=== PATIENT | male | born 1935 | race Caucasian/White ===

== ENCOUNTER 2016-08-21 02:13 | Emergency (ER) | payer OTHER ==
[~2016-08-21] VITALS: Ht 170.2 cm; Wt 68.3 kg
[~2016-08-21 02:13] MED LIST: 8 HOUR PAIN RE650 M1 PO; ACETAMINOPHEN325 M1 PO; ALBUTEROL SULFAT2 MG PO; ALLOPURINOL100 MG PO; AMLODIPINE BES2.5 MG PO; AMOX TR-K CLV1 EAC3 PO; AMOX TR-K CLV1 EAC4 PO; ANTIFUNGAL15 G1 TP; ATENOLOL50 M1 PO; ATHENOL325 MG PO; AUGMENTIN875 MG PO; BENADRYL50 MG PO; BISCOLAX10 MG RC; CALCITRIOL0.25 MC1 PO; CALCITRIOL0.25 MCG PO; CARAFATE1 GM PO; CEFDINIR300 MG PO; CIPRO500 MG PO; CLOTRIMAZOLE15 GM TP; Ceftin PO; DAILY VALUE1 EACH PO; DAILY VITAMIN1 EAC5 PO; DAILY VITE WIT1 EACH PO; DAILY VITE1 EAC1 PO; DIPHENHYDRAMINE50 M1 PO; DITROPAN5 MG PO; DOXYCYCLINE HY100 MG PO; DUONEB 2.5-0.5 M3 ML AEROSOL; DUONEB 2.5-0.5 M3 ML IH; DUONEB 2.5-0.5 M3 ML IPPB; Dulcolax PR; ENULOSE10 GM/151 PO; FEOSOL325 MG PO; FEROSUL325 MG PO; FERROUS SULFAT325 MG PO; INVANZ1 GM IV; IPRATR-ALBUTEROL3 ML IH; IRON325 M1 PO; IRON325 MG PO; KEPPRA500 MG PO; KETOCONAZOLE60 GM TP; LEVAQUIN250 MG PO; LEVAQUIN500 MG PO; LEVAQUIN750 MG PO; LEVETIRACETAM1000 MG PO; LEVETIRACETAM500 MG PO; LEVOFLOXACIN750 MG PO; LINEZOLID600 MG PO; LOPRESSOR25 MG PO; MINERAL OIL PO; MIRALAX 527 GM527 GM PO; MIRALAX17 GM PO; MIRALAX255 GM PO; MONTELUKAST SOD10 MG PO; Miralax, Glycolax PO; NEXIUM40 MG PO; NIZORAL 2% CREA15 GM TP; NORVASC2.5 MG PO; NORVASC5 MG PO; Nizoral 2% Cream TP; Norvasc PO; OMNICEF300 MG PO; PANTOPRAZOLE SO40 MG PO; PHENERGAN12.5 M1 PO; PLAVIX75 MG PO; POLYETHYLENE GL17 GM PO; PRAVACHOL40 MG PO; PRAVASTATIN SOD40 MG PO; PREDNISONE10 MG PO; PREDNISONE5 MG PO; PROMETHAZINE HC25 M1 PO; PROTONIX40 MG PO; PROVENTIL,VENTOL2 MG PO; PURELAX510 GM PO; Phenergan PO; Pravachol PO; Protonix PO; RANITIDINE HCL300 MG PO; ROCALTROL0.25 MCG PO; Rocaltrol PO; SENNA LAXATIVE8.6 MG PO; SENNA8.6 M1 PO; SENNA8.6 MG PO; SINGULAIR10 MG PO; STROVITE FORTE1 EACH PO; SUCRALFATE1 GM PO; Senokot,Sennagen PO; TAMIFLU6 MG/1 ML PO; THERAGRAN1 TABLET PO; TRICOR145 MG PO; TYLENOL REGULA325 MG PO; TYLENOL325 M1 PO; Tricor PO; Tylenol Regular Stre PO; VITAMIN D1000 INTUN PO; VITAMIN D1000 UNIT PO; VITAMIN D31000 UNI2 PO; VITAMIN D31000 UNIT PO; Vitamin D PO; ZANTAC150 MG PO; ZANTAC300 MG PO; ZITHROMAX Z-PA250 MG PO; ZITHROMAX250 MG PO; ZONISAMIDE100 MG PO; ZYLOPRIM100 MG PO; Zithromax PO; [UNRECOGNIZED DRUG - OTHER] PO
[2016-08-21 03:01] LABS: EOSINOPHIL (%) 2.6 % (0-5); EOSINOPHIL COUNT 0.4 K/uL (0-0.3); HEMATOCRIT 29.1 % (38.0-50.0); IMMATURE GRANULOCYTE (%) 0.2 % (0.0-0.7); IMMATURE GRANULOCYTE COUNT 0.3 K/uL; LYMPHOCYTE COUNT 1.7 K/uL (1.0-2.8); MCH 32.8 PG (29.0-34.0); MCHC 33.7 G/DL (30.0-36.0); MCV 97.3 FL (86-99); MEAN PLAT.VOLUME 9.8 uM^3 (9.0-12.4); MONOCYTE (%) 5.6 % (3-12); MONOCYTE COUNT 0.8 K/uL (0-0.8); NEUTROPHIL (%) 79.1 % (45-76); NEUTROPHIL COUNT 10.6 K/uL (1.8-6.4); PLATELET COUNT 279 K/uL (156-360); RBC DIS.WIDTH-CV 12.4 % (11.8-14.6); RBC DIS.WIDTH-SD 42.2 % (39-53); RED BLOOD COUNT 2.99 M/uL (4.00-5.50)
[2016-08-21 03:02] LABS: WHITE BLOOD COUNT 13.4 K/uL (4.1-10.2)
[2016-08-21 03:09] LABS: CHLORIDE 105 mEq/L (99-109); POTASSIUM 4.6 mEq/L (3.7-5.4); SODIUM 137 mEq/L (136-147)
[2016-08-21 03:11] LABS: GLUCOSE 94 mg/dL (70-99)
[2016-08-21 03:12] LABS: ANION GAP 10 MEQ/L (2-14)
[2016-08-21 03:15] LABS: GFR ESTIMATE (CALCULATED) 42 mL/min/
[2016-08-21 03:16] LABS: UREA NITROGEN (BUN) 28 mg/dL (9-23)
[2016-08-21 03:22] LABS: TROP-I INTERPRETATION NEGATIVE; TROPONIN-I < 0.01 ng/mL (0.0-0.30)
[2016-08-21] MEDS ORDERED: ZOFRAN ODT4 MG PO (03:58)
[2016-08-21] MEDS ORDERED: HYCODAN SYRUP480 ML PO (03:58)
[2016-08-21] MEDS ORDERED: DOXYCYCLINE HY100 MG PO (03:58)
[2016-08-21 04:33] VITALS: BP 142/78
== END 2016-08-21 04:34 | disposition home or self-care (01) ==
LOC: EME 02:13
PROVIDERS: Emergency Medicine
DX: J20.9 Acute bronchitis, unspecified (principal); I12.9 Hypertensive chronic kidney disease with stage 1 through stage 4 chronic kidney disease, or unspecified chronic kidney disease; N18.3 Chronic kidney disease, stage 3 (moderate); K21.9 Gastro-esophageal reflux disease without esophagitis; F73 Profound intellectual disabilities
CPT/HCPCS: 71010; 80048; 84484; 85025; 99281; 99284; J2405; J7030

== ENCOUNTER 2016-09-17 22:15 | Inpatient (IN) | payer OTHER ==
[~2016-09-17] VITALS: Ht 167.6 cm; Wt 74.9 kg
[~2016-09-17 22:15] MED LIST changes: +HYCODAN SYRUP480 ML PO; +ZOFRAN ODT4 MG PO
[2016-09-17 22:58] LABS: MCH 32.5 PG (29.0-34.0); MCHC 32.9 G/DL (30.0-36.0); MCV 98.9 FL (86-99); MEAN PLAT.VOLUME 10.2 uM^3 (9.0-12.4); PLATELET COUNT 225 K/uL (156-360); RBC DIS.WIDTH-CV 12.8 % (11.8-14.6); RBC DIS.WIDTH-SD 43.9 % (39-53); RED BLOOD COUNT 2.83 M/uL (4.00-5.50)
[2016-09-17 23:07] LABS: CHLORIDE 104 mEq/L (99-109); POTASSIUM 4.3 mEq/L (3.7-5.4); SODIUM 137 mEq/L (136-147)
[2016-09-17 23:09] LABS: GLUCOSE 115 mg/dL (70-99); INTER. NORMALIZED RATIO 1.1; PROTHROMBIN TIME 11.6 (9.2-11.2); PTT 25.7 (25-32)
[2016-09-17 23:11] LABS: ANION GAP 8 MEQ/L (2-14); TOTAL BILIRUBIN 0.1 mg/dL (0.0-1.0)
[2016-09-17 23:13] LABS: ALKALINE PHOSPHATASE 67 IU/L (3-129); GFR ESTIMATE (CALCULATED) 39 mL/min/
[2016-09-17 23:14] LABS: UREA NITROGEN (BUN) 37 mg/dL (9-23)
[2016-09-17 23:15] LABS: DIRECT BILIRUBIN 0.1 mg/dL (0.0-0.3)
[2016-09-18] VITALS (7 sets, daily range): BP systolic 28–160; BP diastolic 59–84
[2016-09-18 08:09] LABS: HEMATOCRIT 24.4 % (38.0-50.0); MCV 99.6 FL (86-99)
[2016-09-18] MEDS ORDERED: DAILY VITE WIT1 EACH PO (17:02)
[2016-09-18] MEDS ORDERED: GENERLAC10 GM/15 M PO (17:02)
[2016-09-18] MEDS ORDERED: DUONEB 2.5-0.5 M3 ML AEROSOL (17:18)
[2016-09-18] MEDS ORDERED: ACETAMINOPHEN325 M1 PO (17:20)
[2016-09-18 20:19] LABS: HEMATOCRIT 23.3 % (38.0-50.0); MCV 98.3 FL (86-99)
[2016-09-19] VITALS (11 sets, daily range): BP systolic 155–189; BP diastolic 71–93
[2016-09-19 07:33] LABS: ANION GAP 5 MEQ/L (2-14); CHLORIDE 109 MEQ/L (99-109); GFR ESTIMATE (CALCULATED) 52 mL/min/; POTASSIUM 4.4 MEQ/L (3.7-5.4); SAMPLE HEMOLYSIS CHECK 0; SAMPLE ICTERIC CHECK 0; SAMPLE LIPEMIA CHECK 0; SODIUM 141 MEQ/L (136-147); UREA NITROGEN (BUN) 28 mg/dL (9-23)
[2016-09-19 07:36] LABS: GLUCOSE 80 mg/dL (70-99)
[2016-09-19 07:52] LABS: EOSINOPHIL (%) 4.9 % (0-5); EOSINOPHIL COUNT 0.3 K/uL (0-0.3); HEMATOCRIT 25.4 % (38.0-50.0); IMMATURE GRANULOCYTE (%) 0.2 % (0.0-0.7); LYMPHOCYTE COUNT 1.2 K/uL (1.0-2.8); MCH 32.2 PG (29.0-34.0); MCHC 32.7 G/DL (30.0-36.0); MCV 98.4 FL (86-99); MEAN PLAT.VOLUME 10.1 uM^3 (9.0-12.4); MONOCYTE (%) 5.9 % (3-12); MONOCYTE COUNT 0.3 K/uL (0-0.8); NEUTROPHIL (%) 65.1 % (45-76); NEUTROPHIL COUNT 3.3 K/uL (1.8-6.4); PLATELET COUNT 184 K/uL (156-360); RBC DIS.WIDTH-CV 13.1 % (11.8-14.6); RBC DIS.WIDTH-SD 46.9 % (39-53); RED BLOOD COUNT 2.58 M/uL (4.00-5.50)
[2016-09-19 08:09] LABS: WHITE BLOOD COUNT 5.1 K/uL (4.1-10.2)
[2016-09-19 18:28] LABS: HEMATOCRIT 31.9 % (38.0-50.0)
[2016-09-19 18:29] LABS: MCV 93.3 FL (86-99)
[2016-09-20 00:29] VITALS: BP 143/85
[2016-09-20 04:31] VITALS: BP 137/77
[2016-09-20 07:01] LABS: HEMATOCRIT 31.4 % (38.0-50.0); MCH 32.5 PG (29.0-34.0); MCHC 34.7 G/DL (30.0-36.0); MCV 93.7 FL (86-99); MEAN PLAT.VOLUME 10.6 uM^3 (9.0-12.4); PLATELET COUNT 200 K/uL (156-360); RBC DIS.WIDTH-CV 14.4 % (11.8-14.6); RBC DIS.WIDTH-SD 49.3 % (39-53)
[2016-09-20 07:02] LABS: RED BLOOD COUNT 3.35 M/uL (4.00-5.50)
[2016-09-20 07:18] LABS: ANION GAP 14 MEQ/L (2-14); CHLORIDE 103 MEQ/L (99-109); GFR ESTIMATE (CALCULATED) 52 mL/min/; GLUCOSE 58 mg/dL (70-99); POTASSIUM 4.2 MEQ/L (3.7-5.4); SAMPLE HEMOLYSIS CHECK 0; SAMPLE ICTERIC CHECK 0; SAMPLE LIPEMIA CHECK 0; SODIUM 140 MEQ/L (136-147); UREA NITROGEN (BUN) 34 mg/dL (9-23)
[2016-09-20 07:41] VITALS: BP 153/83
[2016-09-20 11:20] VITALS: BP 131/73
== END 2016-09-20 18:00 | disposition home or self-care (01) | DRG 378 ==
LOC: EME → EDBD 22:15 → EDOF 09-18 01:04 → 5WEST 09-18 02:04 → 5SOUTH 09-18 17:24 → 5WEST 09-18 17:24 → 5SOUTH 09-20 00:04
PROVIDERS: Emergency Medicine; Internal Medicine; Internal Medicine Gastroenterology; Physician Assistant
DX: K29.71 Gastritis, unspecified, with bleeding (principal); K22.11 Ulcer of esophagus with bleeding; D62 Acute posthemorrhagic anemia; F79 Unspecified intellectual disabilities; K44.9 Diaphragmatic hernia without obstruction or gangrene; I13.0 Hypertensive heart and chronic kidney disease with heart failure and stage 1 through stage 4 chronic kidney disease, or unspecified chronic kidney disease; I50.9 Heart failure, unspecified; N18.3 Chronic kidney disease, stage 3 (moderate); E78.5 Hyperlipidemia, unspecified; J44.9 Chronic obstructive pulmonary disease, unspecified; G40.909 Epilepsy, unspecified, not intractable, without status epilepticus; K21.9 Gastro-esophageal reflux disease without esophagitis; M10.9 Gout, unspecified; Z66 Do not resuscitate; Z85.46 Personal history of malignant neoplasm of prostate; Z86.73 Personal history of transient ischemic attack (TIA), and cerebral infarction without residual deficits
CPT/HCPCS: 74176; 74177; 80048; 80069; 80076; 81003; 83605; 85014; 85018; 85025; 85027; 85610; 85730; 86850; 86900; 86901; 86920; 88305; 88342 TC; 99202; 99281; 99284; C9113; J1940; J1953; J2405; J7030; J7050; P9016

== ENCOUNTER 2016-11-12 05:03 | Observation (INO) | payer OTHER ==
[~2016-11-12] VITALS: Ht 152.4 cm; Wt 73.5 kg
[~2016-11-12 05:03] MED LIST changes: +GENERLAC10 GM/15 M PO
[2016-11-12 06:21] LABS: EOSINOPHIL COUNT 0.3 K/uL (0-0.3); HEMATOCRIT 29.5 % (38.0-50.0); IMMATURE GRANULOCYTE (%) 0.5 % (0.0-0.7); INSTRUMENT ABS NEUTROPHIL CT 4.8 K/uL; LYMPHOCYTE COUNT 1.9 K/uL (1.0-2.8); MCH 31.4 PG (29.0-34.0); MCHC 31.9 G/DL (30.0-36.0); MCV 98.7 FL (86-99); MEAN PLAT.VOLUME 10.1 uM^3 (9.0-12.4); MONOCYTE (%) 7.4 % (3-12); MONOCYTE COUNT 0.6 K/uL (0-0.8); NEUTROPHIL (%) 62.6 % (45-76); NEUTROPHIL COUNT 4.8 K/uL (1.8-6.4); PLATELET COUNT 266 K/uL (156-360); RBC DIS.WIDTH-CV 12.5 % (11.8-14.6); RBC DIS.WIDTH-SD 45.1 % (39-53); RED BLOOD COUNT 2.99 M/uL (4.00-5.50); WHITE BLOOD COUNT 7.7 K/uL (4.1-10.2)
[2016-11-12 06:30] LABS: CHLORIDE 108 mEq/L (99-109); POTASSIUM 4.9 mEq/L (3.7-5.4); SODIUM 139 mEq/L (136-147)
[2016-11-12 06:33] LABS: GLUCOSE 98 mg/dL (70-99)
[2016-11-12 06:34] LABS: ANION GAP 11 MEQ/L (2-14); TOTAL BILIRUBIN 0.1 mg/dL (0.0-1.0)
[2016-11-12 06:36] LABS: ALKALINE PHOSPHATASE 51 IU/L (3-129); GFR ESTIMATE (CALCULATED) 42 mL/min/
[2016-11-12 06:37] LABS: UREA NITROGEN (BUN) 27 mg/dL (9-23)
[2016-11-12] MEDS ORDERED: ALLOPURINOL100 MG PO (08:41)
[2016-11-12] MEDS ORDERED: DAILY VITE WIT1 EACH PO (08:42)
[2016-11-12] MEDS ORDERED: AMLODIPINE BES2.5 MG PO (08:42)
[2016-11-12] MEDS ORDERED: CALCITRIOL0.25 MCG PO (08:42)
[2016-11-12] MEDS ORDERED: SINGULAIR10 MG PO (08:43)
[2016-11-12] MEDS ORDERED: LACTULOSE10 GM/151 PO (08:43)
[2016-11-12] MEDS ORDERED: PRAVASTATIN SOD40 MG PO (08:44)
[2016-11-12] MEDS ORDERED: RANITIDINE HCL300 MG PO (08:45)
[2016-11-12] MEDS ORDERED: VITAMIN D31000 UNIT PO (08:46)
[2016-11-12] MEDS ORDERED: ZONISAMIDE100 MG PO (08:46)
[2016-11-12] MEDS ORDERED: ACETAMINOPHEN325 M3 PO (08:47)
[2016-11-12] MEDS ORDERED: PROVENTIL,VENTOL2 MG PO (08:47)
[2016-11-12] MEDS ORDERED: FERROUS SULFAT325 MG PO (08:48)
[2016-11-12] MEDS ORDERED: LEVETIRACETAM1000 MG PO (08:48)
[2016-11-12] MEDS ORDERED: PROTONIX40 MG PO (08:49)
[2016-11-12] MEDS ORDERED: SUCRALFATE1 GM PO (08:49)
[2016-11-12] MEDS ORDERED: PROVENTIL,2.5 MG/0.5 IH (08:51)
[2016-11-12] MEDS ORDERED: NIZORAL 2% CREA15 GM TP (08:52)
[2016-11-12 09:54] VITALS: BP 143/78
[2016-11-12 11:22] LABS: ADD MIUA? NO; BILIRUBIN NEGATIVE; BLOOD NEGATIVE; COLOR STRAW ((YELLOW)); GLUCOSE (STRIP) NEGATIVE; KETONES NEGATIVE; LEUKOCYTES NEGATIVE; NITRITE NEGATIVE; PROTEIN (STRIP) NEGATIVE; UCUL ADDED? NO; UROBILINOGEN 0.2 MG/DL (0.2-1.0)
[2016-11-12 12:00] VITALS: BP 151/87
[2016-11-12 12:28] LABS: HEMATOCRIT 27.6 % (38.0-50.0); MCV 98.2 FL (86-99)
[2016-11-12 16:20] VITALS: BP 130/67
[2016-11-12] MEDS ORDERED: DUONEB 2.5-0.5 M3 ML AEROSOL (17:25)
[2016-11-12] MEDS ORDERED: DIPHENHYDRAMINE50 M1 PO (17:27)
[2016-11-12] MEDS ORDERED: SENNA8.6 MG PO (17:28)
[2016-11-12] MEDS ORDERED: PROMETHAZINE HC25 M1 PO (17:28)
[2016-11-12 17:54] LABS: HEMATOCRIT 28.6 % (38.0-50.0); MCV 97.9 FL (86-99)
[2016-11-12 19:59] VITALS: BP 147/67
[2016-11-12 23:55] VITALS: BP 163/70
[2016-11-13 04:59] VITALS: BP 138/82
[2016-11-13 06:07] LABS: HEMATOCRIT 28.7 % (38.0-50.0); MCH 31.5 PG (29.0-34.0); MCHC 32.1 G/DL (30.0-36.0); MCV 98.3 FL (86-99); MEAN PLAT.VOLUME 10.4 uM^3 (9.0-12.4); PLATELET COUNT 232 K/uL (156-360); RBC DIS.WIDTH-CV 12.5 % (11.8-14.6); RBC DIS.WIDTH-SD 44.9 % (39-53); RED BLOOD COUNT 2.92 M/uL (4.00-5.50); WHITE BLOOD COUNT 5.9 K/uL (4.1-10.2)
[2016-11-13 06:25] LABS: ANION GAP 9 MEQ/L (2-14); CHLORIDE 107 MEQ/L (99-109); GFR ESTIMATE (CALCULATED) 48 mL/min/; GLUCOSE 103 mg/dL (70-99); POTASSIUM 4.5 MEQ/L (3.7-5.4); SAMPLE HEMOLYSIS CHECK 0; SAMPLE ICTERIC CHECK 0; SAMPLE LIPEMIA CHECK 0; SODIUM 140 MEQ/L (136-147); UREA NITROGEN (BUN) 20 mg/dL (9-23)
[2016-11-13 08:00] VITALS: BP 154/81
== END 2016-11-13 12:54 | disposition home or self-care (01) ==
LOC: EME → EDBD 05:03 → EME 05:03 → 5WEST 08:07 → EDOF 08:07 → 5WEST 09:08
PROVIDERS: Emergency Medicine; Internal Medicine
DX: K20.9 Esophagitis, unspecified (principal); K92.0 Hematemesis; F79 Unspecified intellectual disabilities; I13.0 Hypertensive heart and chronic kidney disease with heart failure and stage 1 through stage 4 chronic kidney disease, or unspecified chronic kidney disease; I50.9 Heart failure, unspecified; N18.3 Chronic kidney disease, stage 3 (moderate); E78.5 Hyperlipidemia, unspecified; G40.909 Epilepsy, unspecified, not intractable, without status epilepticus; M10.9 Gout, unspecified; J44.9 Chronic obstructive pulmonary disease, unspecified; D64.9 Anemia, unspecified; R25.1 Tremor, unspecified; Z66 Do not resuscitate
CPT/HCPCS: 80048; 80053; 81003; 85014; 85018; 85025; 85027; 86900; 86901; 94640; 94640 76; 99202; C9113; G0378; J7030

== ENCOUNTER 2017-04-14 05:02 | Inpatient (IN) | payer OTHER ==
[~2017-04-14] VITALS: Ht 162.6 cm; Wt 80.6 kg
[2017-04-14] VITALS (24 sets, daily range): BP systolic 110–130; BP diastolic 53–74
[~2017-04-14 05:02] MED LIST changes: +ACETAMINOPHEN325 M3 PO; +LACTULOSE10 GM/151 PO; +PROVENTIL,2.5 MG/0.5 IH
[2017-04-14 05:30] LABS: CREATININE 2.1 mg/dL (0.6-1.3); POTASSIUM 4.6 mEq/L (3.7-5.4)
[2017-04-14 05:42] LABS: EOSINOPHIL (%) 1.7 % (0-5); EOSINOPHIL COUNT 0.2 K/uL (0-0.3); HEMATOCRIT 34.2 % (38.0-50.0); IMMATURE GRANULOCYTE (%) 0.4 % (0.0-0.7); INSTRUMENT ABS NEUTROPHIL CT 8.4 K/uL; LYMPHOCYTE COUNT 0.7 K/uL (1.0-2.8); MCHC 32.5 G/DL (30.0-36.0); MCV 98.6 FL (86-99); MEAN PLAT.VOLUME 10.3 uM^3 (9.0-12.4); MONOCYTE (%) 4.2 % (3-12); MONOCYTE COUNT 0.4 K/uL (0-0.8); NEUTROPHIL (%) 86.1 % (45-76); NEUTROPHIL COUNT 8.4 K/uL (1.8-6.4); PLATELET COUNT 223 K/uL (156-360); RBC DIS.WIDTH-CV 13.1 % (11.8-14.6); RBC DIS.WIDTH-SD 46.7 % (39-53); RED BLOOD COUNT 3.47 M/uL (4.00-5.50); WHITE BLOOD COUNT 9.8 K/uL (4.1-10.2)
[2017-04-14 05:50] LABS: INTER. NORMALIZED RATIO 1.1; PROTHROMBIN TIME 12.6 SEC (10.2-12.9)
[2017-04-14 05:52] LABS: PTT 27.5 SEC (25-37)
[2017-04-14 05:53] LABS: CHLORIDE 105 mEq/L (99-109); POTASSIUM 4.5 mEq/L (3.7-5.4); SODIUM 140 mEq/L (136-147)
[2017-04-14 05:55] LABS: GLUCOSE 102 mg/dL (70-99)
[2017-04-14 05:56] LABS: ANION GAP 13 MEQ/L (2-14)
[2017-04-14 05:57] LABS: TOTAL BILIRUBIN 0.3 mg/dL (0.0-1.0)
[2017-04-14 05:58] LABS: ALKALINE PHOSPHATASE 69 IU/L (3-129)
[2017-04-14 05:59] LABS: GFR ESTIMATE (CALCULATED) 34 mL/min/
[2017-04-14 06:00] LABS: DIRECT BILIRUBIN 0.1 mg/dL (0.0-0.3); UREA NITROGEN (BUN) 37 mg/dL (9-23)
[2017-04-14 06:02] LABS: LIPASE 12 U/L (1.0-51.0); TROP-I INTERPRETATION NEGATIVE; TROPONIN-I < 0.01 ng/mL (0.0-0.30)
[2017-04-14 08:57] LABS: METH RESISTANT S AUREUS PCR NEGATIVE (NEGATIVE); PROBE CHECK PASS; SPECIMEN PROCESSING CONTROL PASS
[2017-04-14 10:37] LABS: HEMATOCRIT 30.7 % (38.0-50.0); MCHC 31.9 G/DL (30.0-36.0); MCV 100.3 FL (86-99); PLATELET COUNT 180 K/uL (156-360); RED BLOOD COUNT 3.06 M/uL (4.00-5.50); WHITE BLOOD COUNT 8.5 K/uL (4.1-10.2)
[2017-04-14 11:01] LABS: ANION GAP 8 MEQ/L (2-14); CHLORIDE 110 MEQ/L (99-109); POTASSIUM 4.9 MEQ/L (3.7-5.4); SAMPLE HEMOLYSIS CHECK 0; SAMPLE ICTERIC CHECK 0; SAMPLE LIPEMIA CHECK 0; SODIUM 140 MEQ/L (136-147)
[2017-04-14 11:06] LABS: GFR ESTIMATE (CALCULATED) 41 mL/min/; GLUCOSE 95 mg/dL (70-99); UREA NITROGEN (BUN) 34 mg/dL (9-23)
[2017-04-14] MEDS ORDERED: CACARB500L PO (14:58)
[2017-04-14 18:43] LABS: HEMATOCRIT 33.3 % (38.0-50.0); MCH 31.9 PG (29.0-34.0); MCV 96.5 FL (86-99); MEAN PLAT.VOLUME 10.2 uM^3 (9.0-12.4); PLATELET COUNT 177 K/uL (156-360); RBC DIS.WIDTH-CV 14.9 % (11.8-14.6); RBC DIS.WIDTH-SD 52.6 % (39-53); RED BLOOD COUNT 3.45 M/uL (4.00-5.50); WHITE BLOOD COUNT 11.9 K/uL (4.1-10.2)
[2017-04-14 23:30] LABS: HEMATOCRIT 33.2 % (38.0-50.0); MCH 30.9 PG (29.0-34.0); MCHC 32.5 G/DL (30.0-36.0); MCV 94.9 FL (86-99); RBC DIS.WIDTH-SD 52.2 % (39-53); WHITE BLOOD COUNT 12.1 K/uL (4.1-10.2)
[2017-04-15] VITALS (19 sets, daily range): BP systolic 87–146; BP diastolic 55–73
[2017-04-15 00:21] LABS: MEAN PLAT.VOLUME 10.7 uM^3 (9.0-12.4); PLAT.SUFFICIENCY DECREASED; PLATELET COUNT 133 K/uL (156-360)
[2017-04-15 07:24] LABS: EOSINOPHIL (%) 1.5 % (0-5); EOSINOPHIL COUNT 0.1 K/uL (0-0.3); HEMATOCRIT 32.1 % (38.0-50.0); IMMATURE GRANULOCYTE (%) 0.2 % (0.0-0.7); INSTRUMENT ABS NEUTROPHIL CT 7.1 K/uL; LYMPHOCYTE COUNT 0.9 K/uL (1.0-2.8); MCH 31.3 PG (29.0-34.0); MCHC 32.4 G/DL (30.0-36.0); MCV 96.7 FL (86-99); MEAN PLAT.VOLUME 10.2 uM^3 (9.0-12.4); MONOCYTE (%) 5.4 % (3-12); MONOCYTE COUNT 0.5 K/uL (0-0.8); NEUTROPHIL (%) 82.2 % (45-76); NEUTROPHIL COUNT 7.1 K/uL (1.8-6.4); PLATELET COUNT 139 K/uL (156-360); RBC DIS.WIDTH-CV 15.1 % (11.8-14.6); RBC DIS.WIDTH-SD 54.5 % (39-53); RED BLOOD COUNT 3.32 M/uL (4.00-5.50); WHITE BLOOD COUNT 8.6 K/uL (4.1-10.2)
[2017-04-15 07:47] LABS: ALKALINE PHOSPHATASE 39 IU/L (3-129); ANION GAP 7 MEQ/L (2-14); CHLORIDE 111 MEQ/L (99-109); GFR ESTIMATE (CALCULATED) 39 mL/min/; GLUCOSE 110 mg/dL (70-99); MAGNESIUM 1.7 mg/dl (1.3-2.7); POTASSIUM 4.3 MEQ/L (3.7-5.4); SAMPLE HEMOLYSIS CHECK 0; SAMPLE ICTERIC CHECK 0; SAMPLE LIPEMIA CHECK 0; SODIUM 141 MEQ/L (136-147); TOTAL BILIRUBIN 0.4 MG/DL (0.0-1.0); UREA NITROGEN (BUN) 36 mg/dL (9-23)
[2017-04-15 12:13] LABS: HEMATOCRIT 32.1 % (38.0-50.0); MCH 32.4 PG (29.0-34.0); MCHC 33.3 G/DL (30.0-36.0); MCV 97.3 FL (86-99); MEAN PLAT.VOLUME 10.9 uM^3 (9.0-12.4); PLATELET COUNT 153 K/uL (156-360); RBC DIS.WIDTH-CV 15.2 % (11.8-14.6); RBC DIS.WIDTH-SD 54.6 % (39-53); WHITE BLOOD COUNT 9.5 K/uL (4.1-10.2)
[2017-04-15 19:11] LABS: HEMATOCRIT 34.3 % (38.0-50.0); MCV 98.8 FL (86-99)
[2017-04-15 23:33] LABS: HEMATOCRIT 33.4 % (38.0-50.0); MCH 31.1 PG (29.0-34.0); MCHC 32.3 G/DL (30.0-36.0); MCV 96.3 FL (86-99); MEAN PLAT.VOLUME 10.4 uM^3 (9.0-12.4); PLATELET COUNT 157 K/uL (156-360); RBC DIS.WIDTH-CV 14.8 % (11.8-14.6); RBC DIS.WIDTH-SD 52.2 % (39-53); RED BLOOD COUNT 3.47 M/uL (4.00-5.50); WHITE BLOOD COUNT 8.1 K/uL (4.1-10.2)
[2017-04-16] VITALS (15 sets, daily range): BP systolic 124–176; BP diastolic 57–83
[2017-04-16 05:36] LABS: HEMATOCRIT 33.5 % (38.0-50.0); MCHC 32.8 G/DL (30.0-36.0); MCV 97.4 FL (86-99); MEAN PLAT.VOLUME 10.6 uM^3 (9.0-12.4); PLATELET COUNT 159 K/uL (156-360); RBC DIS.WIDTH-CV 14.9 % (11.8-14.6); RBC DIS.WIDTH-SD 53.3 % (39-53); RED BLOOD COUNT 3.44 M/uL (4.00-5.50); WHITE BLOOD COUNT 7.6 K/uL (4.1-10.2)
[2017-04-16 05:38] LABS: HEMATOCRIT 33.8 % (38.0-50.0); MCV 97.7 FL (86-99)
[2017-04-16 12:52] LABS: HEMATOCRIT 32.9 % (38.0-50.0); MCV 98.2 FL (86-99)
[2017-04-17 04:15] VITALS: BP 158/72
[2017-04-17 08:27] VITALS: BP 189/92
[2017-04-17 10:12] LABS: HEMATOCRIT 30.9 % (38.0-50.0); MCH 32.2 PG (29.0-34.0); MCV 97.5 FL (86-99); MEAN PLAT.VOLUME 10.3 uM^3 (9.0-12.4); PLATELET COUNT 159 K/uL (156-360); RBC DIS.WIDTH-CV 14.5 % (11.8-14.6); RED BLOOD COUNT 3.17 M/uL (4.00-5.50); WHITE BLOOD COUNT 7.4 K/uL (4.1-10.2)
[2017-04-17 11:02] VITALS: BP 157/78
[2017-04-17 11:33] VITALS: BP 146/71
[2017-04-17 12:35] LABS: ANION GAP 10 MEQ/L (2-14); CHLORIDE 112 MEQ/L (99-109); GFR ESTIMATE (CALCULATED) 52 mL/min/; GLUCOSE 131 mg/dL (70-99); SAMPLE HEMOLYSIS CHECK 0; SAMPLE ICTERIC CHECK 0; SAMPLE LIPEMIA CHECK 0; SODIUM 141 MEQ/L (136-147); UREA NITROGEN (BUN) 20 mg/dL (9-23)
[2017-04-17 16:12] VITALS: BP 168/85
[2017-04-17 23:34] VITALS: BP 163/86
[2017-04-18 06:33] LABS: ANION GAP 9 MEQ/L (2-14); CHLORIDE 105 MEQ/L (99-109); GFR ESTIMATE (CALCULATED) 44 mL/min/; GLUCOSE 136 mg/dL (70-99); POTASSIUM 3.8 MEQ/L (3.7-5.4); SAMPLE HEMOLYSIS CHECK 0; SAMPLE ICTERIC CHECK 0; SAMPLE LIPEMIA CHECK 0; SODIUM 139 MEQ/L (136-147); UREA NITROGEN (BUN) 19 mg/dL (9-23)
[2017-04-18 07:39] VITALS: BP 174/90
[2017-04-18 08:01] VITALS: BP 168/92
[2017-04-18 15:15] VITALS: BP 190/87
[2017-04-18 17:05] VITALS: BP 179/92
[2017-04-18 18:13] VITALS: BP 164/78
[2017-04-19] VITALS: BP 151/100
[2017-04-19 07:33] VITALS: BP 158/74
[2017-04-19 07:44] LABS: EOSINOPHIL COUNT 0.4 K/uL (0-0.3); HEMATOCRIT 35.8 % (38.0-50.0); IMMATURE GRANULOCYTE (%) 0.7 % (0.0-0.7); IMMATURE GRANULOCYTE COUNT 0.1 K/uL; INSTRUMENT ABS NEUTROPHIL CT 7.6 K/uL; LYMPHOCYTE COUNT 1.6 K/uL (1.0-2.8); MCH 31.2 PG (29.0-34.0); MCV 94.7 FL (86-99); MEAN PLAT.VOLUME 10.5 uM^3 (9.0-12.4); MONOCYTE COUNT 0.7 K/uL (0-0.8); NEUTROPHIL (%) 72.4 % (45-76); NEUTROPHIL COUNT 7.6 K/uL (1.8-6.4); PLATELET COUNT 194 K/uL (156-360); RBC DIS.WIDTH-CV 13.8 % (11.8-14.6); RBC DIS.WIDTH-SD 48.8 % (39-53); RED BLOOD COUNT 3.78 M/uL (4.00-5.50); WHITE BLOOD COUNT 10.5 K/uL (4.1-10.2)
[2017-04-19 08:14] LABS: ANION GAP 13 MEQ/L (2-14); CHLORIDE 104 MEQ/L (99-109); GFR ESTIMATE (CALCULATED) 44 mL/min/; GLUCOSE 104 mg/dL (70-99); POTASSIUM 4.3 MEQ/L (3.7-5.4); SAMPLE HEMOLYSIS CHECK 0; SAMPLE ICTERIC CHECK 0; SAMPLE LIPEMIA CHECK 0; SODIUM 140 MEQ/L (136-147); UREA NITROGEN (BUN) 23 mg/dL (9-23)
[2017-04-19 15:42] VITALS: BP 137/63
[2017-04-19 23:49] VITALS: BP 150/73
[2017-04-20 08:06] VITALS: BP 134/71
== END 2017-04-20 14:40 | disposition home or self-care (01) | DRG 380 ==
LOC: EME → EDBD 05:02 → EME 05:02 → EDOF 06:32 → 5SOUTH 06:32 → 4WEST 06:32 → ENRESERV 06:33 → 4WEST 07:25 → 5SOUTH 04-16 15:51 → ENRESERV 04-16 15:55 → 5SOUTH 04-16 18:20
PROVIDERS: Emergency Medicine; Hospitalist; Internal Medicine; Specialist
PROC: 30233N1 Transfusion of Nonautologous Red Blood Cells into Peripheral Vein, Percutaneous Approach (ICD-10-PCS; principal; 2017-04-14)
PROC: 0DJ08ZZ Inspection of Upper Intestinal Tract, Via Natural or Artificial Opening Endoscopic (ICD-10-PCS; principal; 2017-04-14)
DX: K22.11 Ulcer of esophagus with bleeding (principal); J69.0 Pneumonitis due to inhalation of food and vomit; E86.1 Hypovolemia; N17.9 Acute kidney failure, unspecified; E87.2 Acidosis; I13.0 Hypertensive heart and chronic kidney disease with heart failure and stage 1 through stage 4 chronic kidney disease, or unspecified chronic kidney disease; I50.33 Acute on chronic diastolic (congestive) heart failure; N18.3 Chronic kidney disease, stage 3 (moderate); R09.02 Hypoxemia; G40.909 Epilepsy, unspecified, not intractable, without status epilepticus; J44.9 Chronic obstructive pulmonary disease, unspecified; K21.9 Gastro-esophageal reflux disease without esophagitis; D64.9 Anemia, unspecified; E78.5 Hyperlipidemia, unspecified; F03.90 Unspecified dementia, unspecified severity, without behavioral disturbance, psychotic disturbance, mood disturbance, and anxiety; F73 Profound intellectual disabilities; K59.00 Constipation, unspecified; M10.9 Gout, unspecified; N40.0 Benign prostatic hyperplasia without lower urinary tract symptoms; Z66 Do not resuscitate; Z85.46 Personal history of malignant neoplasm of prostate; Z87.19 Personal history of other diseases of the digestive system; Z87.440 Personal history of urinary (tract) infections; K29.70 Gastritis, unspecified, without bleeding
CPT/HCPCS: 71010; 74176; 80047; 80048; 80048 91; 80053; 80076; 83605; 83690; 83735; 84100; 84484; 85014; 85018; 85025; 85027; 85610; 85730; 86850; 86900; 86901; 86920; 87040; 87641; 92526 GN; 92610 GN; 93005; 94640; 94640 76; 94760; 94799; 99202; 99281; 99285; C9113; J0295; J0360; J1940; J1956; J2405; J3370; J7042; J7050; P9016

== ENCOUNTER 2017-07-29 22:54 | Inpatient (IN) | payer OTHER ==
[~2017-07-29] VITALS: Ht 160 cm; Wt 80.9 kg
[~2017-07-29 22:54] MED LIST changes: +CACARB500L PO
[2017-07-30 00:06] LABS: HEMATOCRIT 29.7 % (38.0-50.0); HEMOGLOBIN 10.1 G/DL (12.5-16.6); MCH 33.1 PG (29.0-34.0); MCV 97.4 FL (86-99); PLATELET COUNT 195 K/uL (156-360); RBC DIS.WIDTH-CV 13.3 % (11.8-14.6); RBC DIS.WIDTH-SD 47.8 % (39-53); RED BLOOD COUNT 3.05 M/uL (4.00-5.50); WHITE BLOOD COUNT 8.3 K/uL (4.1-10.2)
[2017-07-30 00:18] LABS: INTER. NORMALIZED RATIO 1.1
[2017-07-30 00:21] LABS: ALBUMIN 3.8 g/dL (3.2-4.8); CHLORIDE 101 mEq/L (99-109); PTT 28.8 SEC (25-37); SODIUM 136 mEq/L (136-147)
[2017-07-30 00:23] LABS: GLUCOSE 98 mg/dL (70-99)
[2017-07-30 00:25] LABS: TOTAL BILIRUBIN 0.3 mg/dL (0.0-1.0)
[2017-07-30 00:27] LABS: ALKALINE PHOSPHATASE 65 IU/L (3-129); CREATININE 1.8 mg/dL (0.6-1.3); GFR ESTIMATE (CALCULATED) 39 mL/min/ (58.99-99999)
[2017-07-30 00:28] LABS: UREA NITROGEN (BUN) 26 mg/dL (9-23)
[2017-07-30 00:29] LABS: AST (GOT) 26 IU/L (2-34)
[2017-07-30 00:30] LABS: ALT (GPT) 36 IU/L (3-49); LIPASE 11 U/L (1.0-51.0)
[2017-07-30 00:31] LABS: TROP-I INTERPRETATION NEGATIVE; TROPONIN-I < 0.01 ng/mL (0.0-0.30)
[2017-07-30 00:55] LABS: APPEARANCE SL.HAZY ((CLEAR)); BILIRUBIN NEGATIVE; BLOOD NEGATIVE; COLOR STRAW ((YELLOW)); GLUCOSE (STRIP) NEGATIVE; KETONES NEGATIVE; LEUKOCYTES LARGE; NITRITE NEGATIVE; PROTEIN (STRIP) NEGATIVE; SPECIFIC GRAVITY 1.006 (1.000-1.030); UROBILINOGEN 0.2 MG/DL (0.2-1.0)
[2017-07-30 00:58] LABS: BACTERIA RARE /HPF; EPITHELIAL CELLS NONE SEEN /HPF; MUCUS TRACE /LPF; RED BLOOD CELLS 0-5 /HPF (0-5); UCUL ADDED? YES; WHITE BLOOD CELLS 40-50 /HPF (0-5)
[2017-07-30] MEDS ORDERED: ZYLOPRIM100 MG PO (08:51)
[2017-07-30] MEDS ORDERED: NORVASC2.5 MG PO (08:51)
[2017-07-30] MEDS ORDERED: ENULOSE10 GM/15 M PO (08:52)
[2017-07-30] MEDS ORDERED: SINGULAIR10 MG PO (08:52)
[2017-07-30] MEDS ORDERED: DAILY VALUE1 EACH PO (08:52)
[2017-07-30] MEDS ORDERED: PRAVACHOL40 MG PO (08:53)
[2017-07-30] MEDS ORDERED: ZANTAC300 MG PO (08:53)
[2017-07-30] MEDS ORDERED: VITAMIN D31000 UNI2 PO (08:54)
[2017-07-30] MEDS ORDERED: ZONEGRAN100 MG PO (08:54)
[2017-07-30] MEDS ORDERED: TYLENOL REGULA325 MG PO ×2 (08:55→09:06)
[2017-07-30] MEDS ORDERED: PROVENTIL,VENTOL2 MG PO (08:55)
[2017-07-30] MEDS ORDERED: IRON325 M1 PO (08:56)
[2017-07-30] MEDS ORDERED: KEPPRA1000 MG PO (08:56)
[2017-07-30] MEDS ORDERED: PROTONIX40 MG PO (08:57)
[2017-07-30] MEDS ORDERED: CARAFATE1 GM PO (08:58)
[2017-07-30] MEDS ORDERED: CACARB500L PO ×2 (09:02→09:03)
[2017-07-30] MEDS ORDERED: DUONEB 2.5-0.5 M3 ML AEROSOL (09:04)
[2017-07-30] MEDS ORDERED: NIZORAL 2% CREA15 GM TP (09:05)
[2017-07-30] MEDS ORDERED: BENADRYL50 MG PO (09:08)
[2017-07-30] MEDS ORDERED: SENNA8.6 MG PO (09:09)
[2017-07-30 14:38] VITALS: BP 130/71
[2017-07-30 19:16] VITALS: BP 135/74
[2017-07-30 23:27] VITALS: BP 133/71
[2017-07-31 03:31] VITALS: BP 126/64
[2017-07-31 06:45] LABS: HEMATOCRIT 31.8 % (38.0-50.0); HEMOGLOBIN 10.8 G/DL (12.5-16.6); MCV 97.2 FL (86-99); PLATELET COUNT 204 K/uL (156-360); RBC DIS.WIDTH-CV 13.2 % (11.8-14.6); RBC DIS.WIDTH-SD 47.2 % (39-53); RED BLOOD COUNT 3.27 M/uL (4.00-5.50); WHITE BLOOD COUNT 11.7 K/uL (4.1-10.2)
[2017-07-31 07:07] LABS: CHLORIDE 103 MEQ/L (99-109); GFR ESTIMATE (CALCULATED) 34 mL/min/ (58.99-99999); GLUCOSE 133 mg/dL (70-99); SODIUM 139 MEQ/L (136-147)
[2017-07-31 07:11] VITALS: BP 147/80
[2017-07-31 07:17] LABS: POTASSIUM 5.2 MEQ/L (3.7-5.4); UREA NITROGEN (BUN) 40 mg/dL (9-23)
[2017-07-31 07:22] LABS: BASOPHIL (%) 0.3 % (0-1); EOSINOPHIL (%) 0.1 % (0-5); IMMATURE GRANULOCYTE (%) 1.2 % (0.0-0.7); LYMPHOCYTE (%) 10.7 % (15-42); LYMPHOCYTE COUNT 1.3 K/uL (1.0-2.8); MONOCYTE (%) 0.6 % (3-12); MONOCYTE COUNT 0.1 K/uL (0-0.8); NEUTROPHIL (%) 87.1 % (45-76); NEUTROPHIL COUNT 10.2 K/uL (1.8-6.4)
[2017-07-31 11:22] VITALS: BP 140/66
[2017-07-31 19:42] VITALS: BP 139/66
[2017-08-01 00:44] VITALS: BP 140/83
[2017-08-01 03:56] VITALS: BP 162/77
[2017-08-01 08:40] VITALS: BP 146/70
[2017-08-01] MEDS ORDERED: BACTRIM,SEPT1 TABLE1 PO (11:48)
[2017-08-01 12:04] VITALS: BP 135/65
== END 2017-08-01 15:40 | disposition home or self-care (01) | DRG 194 ==
LOC: EME → EDBD 22:54 → EME 22:54 → EDOF 07-30 01:52 → 5SOUTH 07-30 01:52 → ENRESERV 07-30 01:54 → 5SOUTH 07-30 14:22
PROVIDERS: Emergency Medicine; Hospitalist; Internal Medicine
DX: J15.9 Unspecified bacterial pneumonia (principal); Y95 Nosocomial condition; R09.02 Hypoxemia; I13.0 Hypertensive heart and chronic kidney disease with heart failure and stage 1 through stage 4 chronic kidney disease, or unspecified chronic kidney disease; I50.32 Chronic diastolic (congestive) heart failure; N18.3 Chronic kidney disease, stage 3 (moderate); R13.10 Dysphagia, unspecified; D64.9 Anemia, unspecified; F73 Profound intellectual disabilities; G40.909 Epilepsy, unspecified, not intractable, without status epilepticus; G47.00 Insomnia, unspecified; J45.909 Unspecified asthma, uncomplicated; K21.9 Gastro-esophageal reflux disease without esophagitis; G43.909 Migraine, unspecified, not intractable, without status migrainosus; H26.9 Unspecified cataract; K59.09 Other constipation; N30.01 Acute cystitis with hematuria; F32.9 Major depressive disorder, single episode, unspecified; F41.9 Anxiety disorder, unspecified; N40.0 Benign prostatic hyperplasia without lower urinary tract symptoms; Z85.46 Personal history of malignant neoplasm of prostate; Z87.01 Personal history of pneumonia (recurrent)
CPT/HCPCS: 71045; 71250; 80048; 80053; 81003; 83605; 83690; 83880; 84484; 85025; 85027; 85610; 85730; 87040; 87077; 87086; 87186; 87449; 87502; 92610 GN; 93005; 94640; 94640 76; 99202; 99281; 99285; C9113; J0692; J0696; J1644; J2543; J2920; J3370; J7050

== ENCOUNTER 2017-08-02 08:25 | Emergency (ER) | payer OTHER ==
[~2017-08-02] VITALS: Ht 170.2 cm; Wt 78.7 kg
[~2017-08-02 08:25] MED LIST changes: +BACTRIM,SEPT1 TABLE1 PO; +ENULOSE10 GM/15 M PO; +KEPPRA1000 MG PO; +ZONEGRAN100 MG PO
[2017-08-02 09:10] LABS: BASOPHIL (%) 0.1 % (0-1); EOSINOPHIL (%) 0.1 % (0-5); HEMATOCRIT 31.8 % (38.0-50.0); HEMOGLOBIN 10.3 G/DL (12.5-16.6); IMMATURE GRANULOCYTE (%) 1.2 % (0.0-0.7); LYMPHOCYTE (%) 19.5 % (15-42); LYMPHOCYTE COUNT 1.7 K/uL (1.0-2.8); MCH 32.5 PG (29.0-34.0); MCHC 32.4 G/DL (30.0-36.0); MCV 100.3 FL (86-99); MONOCYTE COUNT 0.8 K/uL (0-0.8); NEUTROPHIL (%) 70.1 % (45-76); PLATELET COUNT 194 K/uL (156-360); RBC DIS.WIDTH-CV 13.4 % (11.8-14.6); RBC DIS.WIDTH-SD 49.6 % (39-53); RED BLOOD COUNT 3.17 M/uL (4.00-5.50); WHITE BLOOD COUNT 8.5 K/uL (4.1-10.2)
[2017-08-02 09:18] LABS: ALBUMIN 3.9 g/dL (3.2-4.8)
[2017-08-02 09:19] LABS: POTASSIUM 4.5 mEq/L (3.7-5.4); SODIUM 143 mEq/L (136-147)
[2017-08-02 09:20] LABS: CHLORIDE 112 mEq/L (99-109)
[2017-08-02 09:21] LABS: GLUCOSE 87 mg/dL (70-99); TOTAL PROTEIN 6.1 g/dL (6.4-8.3)
[2017-08-02 09:23] LABS: TOTAL BILIRUBIN 0.3 mg/dL (0.0-1.0)
[2017-08-02 09:24] LABS: ALKALINE PHOSPHATASE 53 IU/L (3-129)
[2017-08-02 09:25] LABS: GFR ESTIMATE (CALCULATED) 34 mL/min/ (58.99-99999)
[2017-08-02 09:26] LABS: AST (GOT) 20 IU/L (2-34)
[2017-08-02 09:27] LABS: ALT (GPT) 34 IU/L (3-49)
[2017-08-02 09:31] LABS: UREA NITROGEN (BUN) 66 mg/dL (9-23)
[2017-08-02 11:07] LABS: APPEARANCE CLEAR ((CLEAR)); BILIRUBIN NEGATIVE; BLOOD NEGATIVE; COLOR STRAW ((YELLOW)); GLUCOSE (STRIP) NEGATIVE; KETONES NEGATIVE; LEUKOCYTES NEGATIVE; NITRITE NEGATIVE; PROTEIN (STRIP) NEGATIVE; SPECIFIC GRAVITY 1.013 (1.000-1.030); UROBILINOGEN 0.2 MG/DL (0.2-1.0)
[2017-08-02 13:03] VITALS: BP 143/81
== END 2017-08-02 13:05 | disposition home or self-care (01) ==
LOC: EME 08:25
PROVIDERS: Emergency Medicine
DX: E86.0 Dehydration (principal); F79 Unspecified intellectual disabilities; N39.0 Urinary tract infection, site not specified; I12.9 Hypertensive chronic kidney disease with stage 1 through stage 4 chronic kidney disease, or unspecified chronic kidney disease; N18.3 Chronic kidney disease, stage 3 (moderate); J45.909 Unspecified asthma, uncomplicated; Z86.73 Personal history of transient ischemic attack (TIA), and cerebral infarction without residual deficits; Z87.01 Personal history of pneumonia (recurrent); Z85.46 Personal history of malignant neoplasm of prostate
CPT/HCPCS: 70450; 71045; 80053; 81003; 85025; 99281; 99285; J7030

== ENCOUNTER 2017-08-17 17:19 | Emergency (ER) | payer OTHER ==
[~2017-08-17] VITALS: Ht 162.6 cm; Wt 68.2 kg
[2017-08-17 18:06] LABS: BASOPHIL (%) 0.6 % (0-1); BASOPHIL COUNT 0.1 K/uL (0-0.1); EOSINOPHIL (%) 1.4 % (0-5); EOSINOPHIL COUNT 0.2 K/uL (0-0.3); HEMATOCRIT 29.7 % (38.0-50.0); HEMOGLOBIN 9.9 G/DL (12.5-16.6); IMMATURE GRANULOCYTE (%) 0.8 % (0.0-0.7); LYMPHOCYTE (%) 14.9 % (15-42); LYMPHOCYTE COUNT 1.8 K/uL (1.0-2.8); MCH 33.3 PG (29.0-34.0); MCHC 33.3 G/DL (30.0-36.0); MONOCYTE (%) 6.6 % (3-12); MONOCYTE COUNT 0.8 K/uL (0-0.8); NEUTROPHIL (%) 75.7 % (45-76); NEUTROPHIL COUNT 9.3 K/uL (1.8-6.4); PLATELET COUNT 182 K/uL (156-360); RBC DIS.WIDTH-CV 12.8 % (11.8-14.6); RBC DIS.WIDTH-SD 46.3 % (39-53); RED BLOOD COUNT 2.97 M/uL (4.00-5.50); WHITE BLOOD COUNT 12.3 K/uL (4.1-10.2)
[2017-08-17 18:16] LABS: CHLORIDE 102 mEq/L (99-109); POTASSIUM 4.1 mEq/L (3.7-5.4); SODIUM 135 mEq/L (136-147)
[2017-08-17 18:17] LABS: GLUCOSE 111 mg/dL (70-99)
[2017-08-17 18:21] LABS: CREATININE 2.1 mg/dL (0.6-1.3); GFR ESTIMATE (CALCULATED) 32 mL/min/ (58.99-99999)
[2017-08-17 18:22] LABS: UREA NITROGEN (BUN) 45 mg/dL (9-23)
[2017-08-17 21:41] VITALS: BP 155/65
== END 2017-08-17 21:44 | disposition home or self-care (01) ==
LOC: EME 17:19
PROVIDERS: Emergency Medicine
DX: J06.9 Acute upper respiratory infection, unspecified (principal); F79 Unspecified intellectual disabilities; I67.89 Other cerebrovascular disease; J98.11 Atelectasis; R93.0 Abnormal findings on diagnostic imaging of skull and head, not elsewhere classified; K21.9 Gastro-esophageal reflux disease without esophagitis; J45.909 Unspecified asthma, uncomplicated; N40.0 Benign prostatic hyperplasia without lower urinary tract symptoms; I12.9 Hypertensive chronic kidney disease with stage 1 through stage 4 chronic kidney disease, or unspecified chronic kidney disease; N18.3 Chronic kidney disease, stage 3 (moderate); R56.9 Unspecified convulsions; F41.9 Anxiety disorder, unspecified; F32.9 Major depressive disorder, single episode, unspecified; Z85.46 Personal history of malignant neoplasm of prostate; Z88.6 Allergy status to analgesic agent; Z88.8 Allergy status to other drugs, medicaments and biological substances
CPT/HCPCS: 70450; 71045; 71250; 80048; 85025; 94640; 99281; 99285

== ENCOUNTER 2017-12-05 21:27 | Emergency (ER) | payer OTHER ==
[~2017-12-05] VITALS: Ht 170.2 cm; Wt 82.5 kg
[2017-12-05 21:58] LABS: APPEARANCE SL.HAZY ((CLEAR)); BILIRUBIN NEGATIVE; BLOOD NEGATIVE; COLOR YELLOW ((YELLOW)); GLUCOSE (STRIP) NEGATIVE; KETONES NEGATIVE; LEUKOCYTES LARGE; NITRITE NEGATIVE; PROTEIN (STRIP) NEGATIVE; SPECIFIC GRAVITY 1.019 (1.000-1.030); UROBILINOGEN 0.2 MG/DL (0.2-1.0)
[2017-12-05 22:24] LABS: RED BLOOD CELLS 0-5 /HPF (0-5)
[2017-12-05 22:25] LABS: BACTERIA 1+ /HPF; EPITHELIAL CELLS NONE SEEN /HPF; MUCUS NONE SEEN /LPF; UCUL ADDED? YES
[2017-12-05 22:26] LABS: BASOPHIL (%) 0.6 % (0-1); EOSINOPHIL (%) 4.9 % (0-5); EOSINOPHIL COUNT 0.3 K/uL (0-0.3); HEMATOCRIT 29.5 % (38.0-50.0); HEMOGLOBIN 9.9 G/DL (12.5-16.6); IMMATURE GRANULOCYTE (%) 0.3 % (0.0-0.7); LYMPHOCYTE (%) 22.2 % (15-42); LYMPHOCYTE COUNT 1.5 K/uL (1.0-2.8); MCH 33.7 PG (29.0-34.0); MCHC 33.6 G/DL (30.0-36.0); MCV 100.3 FL (86-99); MONOCYTE COUNT 0.8 K/uL (0-0.8); NEUTROPHIL COUNT 4.1 K/uL (1.8-6.4); PLATELET COUNT 235 K/uL (156-360); RBC DIS.WIDTH-CV 12.3 % (11.8-14.6); RBC DIS.WIDTH-SD 45.1 % (39-53); RED BLOOD COUNT 2.94 M/uL (4.00-5.50); WHITE BLOOD COUNT 6.8 K/uL (4.1-10.2)
[2017-12-05 22:36] LABS: ALBUMIN 3.9 g/dL (3.2-4.8); CHLORIDE 109 mEq/L (99-109); POTASSIUM 4.6 mEq/L (3.7-5.4); SODIUM 142 mEq/L (136-147)
[2017-12-05 22:37] LABS: MAGNESIUM 2.1 mg/dL (1.3-2.7)
[2017-12-05 22:38] LABS: GLUCOSE 119 mg/dL (70-99)
[2017-12-05 22:39] LABS: TOTAL PROTEIN 6.4 g/dL (6.4-8.3)
[2017-12-05 22:40] LABS: TOTAL BILIRUBIN 0.2 mg/dL (0.0-1.0)
[2017-12-05 22:42] LABS: ALKALINE PHOSPHATASE 71 IU/L (3-129); CREATININE 2.2 mg/dL (0.6-1.3); GFR ESTIMATE (CALCULATED) 31 mL/min/ (58.99-99999)
[2017-12-05 22:43] LABS: UREA NITROGEN (BUN) 40 mg/dL (9-23)
[2017-12-05 22:44] LABS: AST (GOT) 19 IU/L (2-34)
[2017-12-05 22:45] LABS: ALT (GPT) 34 IU/L (3-49)
[2017-12-05 22:46] LABS: INTER. NORMALIZED RATIO 1.3
[2017-12-05 22:48] LABS: PTT 29.5 SEC (25-37)
[2017-12-05] MEDS ORDERED: BACTRIM,SEPT1 TABLET PO (23:17)
[2017-12-05 23:32] VITALS: BP 142/78
== END 2017-12-05 23:44 | disposition home or self-care (01) ==
LOC: EME → EDBD 21:27 → EME 23:44
PROVIDERS: Emergency Medicine
DX: N39.0 Urinary tract infection, site not specified (principal); Z66 Do not resuscitate; J45.909 Unspecified asthma, uncomplicated; I13.0 Hypertensive heart and chronic kidney disease with heart failure and stage 1 through stage 4 chronic kidney disease, or unspecified chronic kidney disease; I50.9 Heart failure, unspecified; N18.9 Chronic kidney disease, unspecified; F32.9 Major depressive disorder, single episode, unspecified; F41.9 Anxiety disorder, unspecified; K21.9 Gastro-esophageal reflux disease without esophagitis; N40.0 Benign prostatic hyperplasia without lower urinary tract symptoms; Z85.46 Personal history of malignant neoplasm of prostate; G40.909 Epilepsy, unspecified, not intractable, without status epilepticus; Z88.6 Allergy status to analgesic agent
CPT/HCPCS: 71045; 80053; 81003; 83605; 83735; 85025; 85610; 85730; 87040; 87077; 87086 GA; 87186; 93005; 99281; 99284

== ENCOUNTER 2018-01-06 14:11 | Emergency (ER) | payer OTHER ==
[~2018-01-06] VITALS: Ht 162.6 cm; Wt 82.4 kg
[~2018-01-06 14:11] MED LIST changes: +BACTRIM,SEPT1 TABLET PO
[2018-01-06 15:10] LABS: BASOPHIL (%) 0.4 % (0-1); BASOPHIL COUNT 0.1 K/uL (0-0.1); EOSINOPHIL (%) 2.1 % (0-5); EOSINOPHIL COUNT 0.3 K/uL (0-0.3); HEMOGLOBIN 10.4 G/DL (12.5-16.6); IMMATURE GRANULOCYTE (%) 0.4 % (0.0-0.7); LYMPHOCYTE (%) 11.8 % (15-42); LYMPHOCYTE COUNT 1.7 K/uL (1.0-2.8); MCHC 34.7 G/DL (30.0-36.0); MONOCYTE (%) 5.3 % (3-12); MONOCYTE COUNT 0.8 K/uL (0-0.8); NEUTROPHIL COUNT 11.5 K/uL (1.8-6.4); PLATELET COUNT 205 K/uL (156-360); RBC DIS.WIDTH-CV 12.7 % (11.8-14.6); RBC DIS.WIDTH-SD 45.5 % (39-53); RED BLOOD COUNT 3.06 M/uL (4.00-5.50); WHITE BLOOD COUNT 14.3 K/uL (4.1-10.2)
[2018-01-06 15:20] LABS: CHLORIDE 100 mEq/L (99-109); POTASSIUM 4.9 mEq/L (3.7-5.4); SODIUM 135 mEq/L (136-147)
[2018-01-06 15:23] LABS: GLUCOSE 94 mg/dL (70-99); TOTAL PROTEIN 6.6 g/dL (6.4-8.3)
[2018-01-06 15:25] LABS: TOTAL BILIRUBIN 0.4 mg/dL (0.0-1.0)
[2018-01-06 15:26] LABS: ALKALINE PHOSPHATASE 73 IU/L (3-129); GFR ESTIMATE (CALCULATED) 34 mL/min/ (58.99-99999)
[2018-01-06 15:27] LABS: UREA NITROGEN (BUN) 35 mg/dL (9-23)
[2018-01-06 15:28] LABS: AST (GOT) 33 IU/L (2-34)
[2018-01-06 15:29] LABS: ALT (GPT) 41 IU/L (3-49)
[2018-01-06 15:34] LABS: TROP-I INTERPRETATION NEGATIVE; TROPONIN-I 0.02 ng/mL (0.0-0.30)
[2018-01-06] MEDS ORDERED: LEVAQUIN750 MG PO (16:15)
[2018-01-06 19:49] VITALS: BP 135/66
== END 2018-01-06 19:56 | disposition home or self-care (01) ==
LOC: EME 14:11
PROVIDERS: Emergency Medicine
DX: J18.9 Pneumonia, unspecified organism (principal); E83.52 Hypercalcemia; I45.10 Unspecified right bundle-branch block; F73 Profound intellectual disabilities; J45.909 Unspecified asthma, uncomplicated; I13.0 Hypertensive heart and chronic kidney disease with heart failure and stage 1 through stage 4 chronic kidney disease, or unspecified chronic kidney disease; I50.9 Heart failure, unspecified; N18.3 Chronic kidney disease, stage 3 (moderate); Z85.46 Personal history of malignant neoplasm of prostate; Z87.01 Personal history of pneumonia (recurrent)
CPT/HCPCS: 70450; 71046; 80053; 81003; 83605; 84484; 85025; 87040; 93005; 99281; 99285; J7030

== ENCOUNTER 2018-01-23 18:43 | Emergency (ER) | payer OTHER ==
[~2018-01-23] VITALS: Ht 175.3 cm; Wt 82.5 kg
[2018-01-23 19:21] LABS: HEMATOCRIT 26.6 % (38.0-50.0); HEMOGLOBIN 8.9 G/DL (12.5-16.6); MCH 33.8 PG (29.0-34.0); MCHC 33.5 G/DL (30.0-36.0); MCV 101.1 FL (86-99); PLATELET COUNT 189 K/uL (156-360); RBC DIS.WIDTH-CV 12.9 % (11.8-14.6); RBC DIS.WIDTH-SD 47.4 % (39-53); RED BLOOD COUNT 2.63 M/uL (4.00-5.50)
[2018-01-23 19:38] LABS: ALBUMIN 3.8 g/dL (3.2-4.8); CHLORIDE 110 mEq/L (99-109); POTASSIUM 4.4 mEq/L (3.7-5.4); SODIUM 140 mEq/L (136-147)
[2018-01-23 19:41] LABS: GLUCOSE 123 mg/dL (70-99); TOTAL PROTEIN 5.9 g/dL (6.4-8.3)
[2018-01-23 19:42] LABS: TOTAL BILIRUBIN 0.3 mg/dL (0.0-1.0)
[2018-01-23 19:44] LABS: ALKALINE PHOSPHATASE 56 IU/L (3-129); CREATININE 1.8 mg/dL (0.6-1.3); GFR ESTIMATE (CALCULATED) 39 mL/min/ (58.99-99999)
[2018-01-23 19:45] LABS: UREA NITROGEN (BUN) 42 mg/dL (9-23)
[2018-01-23 19:46] LABS: AST (GOT) 21 IU/L (2-34); TROP-I INTERPRETATION NEGATIVE; TROPONIN-I 0.02 ng/mL (0.0-0.30)
[2018-01-23 19:47] LABS: ALT (GPT) 29 IU/L (3-49)
[2018-01-23] MEDS ORDERED: ZOFRAN ODT4 MG PO (21:37)
[2018-01-23 22:02] LABS: HEMATOCRIT 27.9 % (38.0-50.0); HEMOGLOBIN 9.4 G/DL (12.5-16.6); MCV 101.1 FL (86-99)
[2018-01-23 23:14] VITALS: BP 125/61
== END 2018-01-24 00:45 | disposition home or self-care (01) ==
LOC: EME 18:43
PROVIDERS: Emergency Medicine; Nurse Practitioner Family
DX: N39.0 Urinary tract infection, site not specified (principal); R11.2 Nausea with vomiting, unspecified; K21.9 Gastro-esophageal reflux disease without esophagitis; J45.909 Unspecified asthma, uncomplicated; I13.0 Hypertensive heart and chronic kidney disease with heart failure and stage 1 through stage 4 chronic kidney disease, or unspecified chronic kidney disease; I50.9 Heart failure, unspecified; N18.3 Chronic kidney disease, stage 3 (moderate); R56.9 Unspecified convulsions; F73 Profound intellectual disabilities; F32.9 Major depressive disorder, single episode, unspecified; F41.9 Anxiety disorder, unspecified; F31.9 Bipolar disorder, unspecified; Z85.46 Personal history of malignant neoplasm of prostate; Z87.19 Personal history of other diseases of the digestive system; Z88.6 Allergy status to analgesic agent; Z88.8 Allergy status to other drugs, medicaments and biological substances
CPT/HCPCS: 71046; 80053; 84484; 85014; 85018; 85027; 93005; 99281; 99284

== ENCOUNTER → 2018-01-23 | Emergency (ER) | payer OTHER ==
[~2018-01-23] VITALS: Ht 172.7 cm; Wt 81.8 kg
[~2018-01-23] MED LIST changes: +KEFLEX500 MG PO
[2018-01-23 09:35] LABS: HEMATOCRIT 31.3 % (38.0-50.0); HEMOGLOBIN 10.3 G/DL (12.5-16.6); MCH 33.3 PG (29.0-34.0); MCHC 32.9 G/DL (30.0-36.0); MCV 101.3 FL (86-99); PLATELET COUNT 230 K/uL (156-360); RBC DIS.WIDTH-CV 12.8 % (11.8-14.6); RBC DIS.WIDTH-SD 47.6 % (39-53); RED BLOOD COUNT 3.09 M/uL (4.00-5.50); WHITE BLOOD COUNT 14.5 K/uL (4.1-10.2)
[2018-01-23 10:04] LABS: TROP-I INTERPRETATION NEGATIVE; TROPONIN-I 0.01 ng/mL (0.0-0.30)
[2018-01-23 10:05] LABS: ALBUMIN 4.3 G/DL (3.2-4.8); ALKALINE PHOSPHATASE 56 IU/L (3-129); ALT (GPT) 31 IU/L (3-49); AST (GOT) 25 IU/L (2-34); CHLORIDE 107 MEQ/L (99-109); CREATININE 1.7 MG/DL (0.6-1.3); GFR ESTIMATE (CALCULATED) 41 mL/min/ (58.99-99999); GLUCOSE 116 mg/dL (70-99); POTASSIUM 4.8 MEQ/L (3.7-5.4); SODIUM 139 MEQ/L (136-147); TOTAL BILIRUBIN 0.4 MG/DL (0.0-1.0); TOTAL PROTEIN 6.6 G/DL (6.4-8.3); UREA NITROGEN (BUN) 40 mg/dL (9-23)
[2018-01-23 12:27] LABS: APPEARANCE SL.HAZY ((CLEAR)); BILIRUBIN NEGATIVE; BLOOD SMALL; COLOR YELLOW ((YELLOW)); GLUCOSE (STRIP) NEGATIVE; KETONES NEGATIVE; LEUKOCYTES LARGE; NITRITE NEGATIVE; PROTEIN (STRIP) NEGATIVE; SPECIFIC GRAVITY 1.013 (1.000-1.030); UROBILINOGEN 0.2 MG/DL (0.2-1.0)
[2018-01-23 12:46] LABS: RED BLOOD CELLS RARE /HPF (0-5); WHITE BLOOD CELLS TNTC /HPF (0-5)
[2018-01-23 12:47] LABS: BACTERIA 1+ /HPF; EPITHELIAL CELLS NONE SEEN /HPF; MUCUS NONE SEEN /LPF; UCUL ADDED? YES
[2018-01-23 13:45] VITALS: BP 123/62
== END | disposition home or self-care (01) ==
LOC: EME → EDBD 08:57 → EME 08:57
PROVIDERS: Emergency Medicine
DX: N39.0 Urinary tract infection, site not specified (principal); B96.20 Unspecified Escherichia coli [E. coli] as the cause of diseases classified elsewhere; Z16.12 Extended spectrum beta lactamase (ESBL) resistance; R11.10 Vomiting, unspecified; I12.9 Hypertensive chronic kidney disease with stage 1 through stage 4 chronic kidney disease, or unspecified chronic kidney disease; N18.3 Chronic kidney disease, stage 3 (moderate); I50.9 Heart failure, unspecified; K59.09 Other constipation; N40.0 Benign prostatic hyperplasia without lower urinary tract symptoms; K21.9 Gastro-esophageal reflux disease without esophagitis; E21.3 Hyperparathyroidism, unspecified; J45.909 Unspecified asthma, uncomplicated; R56.9 Unspecified convulsions; G43.909 Migraine, unspecified, not intractable, without status migrainosus; F73 Profound intellectual disabilities; F41.9 Anxiety disorder, unspecified; F32.9 Major depressive disorder, single episode, unspecified; F31.9 Bipolar disorder, unspecified; Z85.46 Personal history of malignant neoplasm of prostate; Z87.19 Personal history of other diseases of the digestive system; Z87.01 Personal history of pneumonia (recurrent); Z90.79 Acquired absence of other genital organ(s); Z90.49 Acquired absence of other specified parts of digestive tract; Z88.6 Allergy status to analgesic agent; Z88.8 Allergy status to other drugs, medicaments and biological substances
CPT/HCPCS: 74176; 80053; 81003; 84484; 85027; 87077; 87086; 87186; 93005; 99281; 99285

== ENCOUNTER 2018-02-14 19:32 | Emergency (ER) | payer OTHER ==
[~2018-02-14] VITALS: Ht 160 cm; Wt 88.8 kg
[2018-02-14 20:18] LABS: BASOPHIL (%) 0.5 % (0-1); EOSINOPHIL (%) 4.6 % (0-5); EOSINOPHIL COUNT 0.4 K/uL (0-0.3); HEMATOCRIT 29.3 % (38.0-50.0); HEMOGLOBIN 9.8 G/DL (12.5-16.6); IMMATURE GRANULOCYTE (%) 0.7 % (0.0-0.7); LYMPHOCYTE (%) 23.1 % (15-42); LYMPHOCYTE COUNT 1.8 K/uL (1.0-2.8); MCH 33.1 PG (29.0-34.0); MCHC 33.4 G/DL (30.0-36.0); MONOCYTE COUNT 0.8 K/uL (0-0.8); NEUTROPHIL (%) 61.1 % (45-76); NEUTROPHIL COUNT 4.6 K/uL (1.8-6.4); PLATELET COUNT 208 K/uL (156-360); RBC DIS.WIDTH-CV 12.5 % (11.8-14.6); RBC DIS.WIDTH-SD 45.1 % (39-53); RED BLOOD COUNT 2.96 M/uL (4.00-5.50); WHITE BLOOD COUNT 7.6 K/uL (4.1-10.2)
[2018-02-14 20:28] LABS: ALBUMIN 3.9 g/dL (3.2-4.8); CHLORIDE 107 mEq/L (99-109); POTASSIUM 4.2 mEq/L (3.7-5.4); SODIUM 139 mEq/L (136-147)
[2018-02-14 20:30] LABS: GLUCOSE 129 mg/dL (70-99); TOTAL PROTEIN 6.1 g/dL (6.4-8.3)
[2018-02-14 20:32] LABS: TOTAL BILIRUBIN 0.2 mg/dL (0.0-1.0)
[2018-02-14 20:33] LABS: INTER. NORMALIZED RATIO 1.1
[2018-02-14 20:34] LABS: ALKALINE PHOSPHATASE 65 IU/L (3-129); CREATININE 1.8 mg/dL (0.6-1.3); GFR ESTIMATE (CALCULATED) 39 mL/min/ (58.99-99999)
[2018-02-14 20:35] LABS: AST (GOT) 27 IU/L (2-34); DIRECT BILIRUBIN 0.1 mg/dL (0.0-0.3); PTT 28.7 SEC (25-37); UREA NITROGEN (BUN) 23 mg/dL (9-23)
[2018-02-14 20:37] LABS: ALT (GPT) 42 IU/L (3-49)
[2018-02-14 20:38] LABS: TROP-I INTERPRETATION NEGATIVE; TROPONIN-I 0.01 ng/mL (0.0-0.30)
[2018-02-14] MEDS ORDERED: ZITHROMAX Z-PA250 MG PO (21:19)
[2018-02-14] MEDS ORDERED: PREDNISONE20 MG PO (21:19)
[2018-02-14 21:36] VITALS: BP 149/69
== END 2018-02-14 22:22 | disposition home or self-care (01) ==
LOC: EME → EDBD 19:32 → EME 19:32
PROVIDERS: Emergency Medicine
DX: J45.901 Unspecified asthma with (acute) exacerbation (principal); I13.0 Hypertensive heart and chronic kidney disease with heart failure and stage 1 through stage 4 chronic kidney disease, or unspecified chronic kidney disease; I50.9 Heart failure, unspecified; N18.3 Chronic kidney disease, stage 3 (moderate); F32.9 Major depressive disorder, single episode, unspecified; F41.9 Anxiety disorder, unspecified; G40.909 Epilepsy, unspecified, not intractable, without status epilepticus; K21.9 Gastro-esophageal reflux disease without esophagitis; N40.0 Benign prostatic hyperplasia without lower urinary tract symptoms; Z85.46 Personal history of malignant neoplasm of prostate; Z87.19 Personal history of other diseases of the digestive system; Z88.6 Allergy status to analgesic agent
CPT/HCPCS: 71045; 80048; 80076; 83605; 83880; 84484; 85025; 85610; 85730; 94640; 99281; 99284; J2930

== ENCOUNTER 2018-03-01 18:50 | Emergency (ER) | payer OTHER ==
[~2018-03-01] VITALS: Ht 157.5 cm; Wt 85.6 kg
[~2018-03-01 18:50] MED LIST changes: +PREDNISONE20 MG PO
[2018-03-01 20:56] LABS: HEMATOCRIT 26.1 % (38.0-50.0); HEMOGLOBIN 8.9 G/DL (12.5-16.6); MCHC 34.1 G/DL (30.0-36.0); MCV 99.6 FL (86-99); PLATELET COUNT 189 K/uL (156-360); RBC DIS.WIDTH-CV 12.4 % (11.8-14.6); RED BLOOD COUNT 2.62 M/uL (4.00-5.50); WHITE BLOOD COUNT 7.6 K/uL (4.1-10.2)
[2018-03-01 21:49] LABS: BASOPHIL (%) 0.5 % (0-1); EOSINOPHIL (%) 3.9 % (0-5); EOSINOPHIL COUNT 0.3 K/uL (0-0.3); IMMATURE GRANULOCYTE (%) 0.7 % (0.0-0.7); LYMPHOCYTE (%) 21.1 % (15-42); LYMPHOCYTE COUNT 1.6 K/uL (1.0-2.8); MONOCYTE (%) 7.7 % (3-12); MONOCYTE COUNT 0.6 K/uL (0-0.8); NEUTROPHIL (%) 66.1 % (45-76)
[2018-03-01 21:58] LABS: ALBUMIN 3.9 g/dL (3.2-4.8); CHLORIDE 105 mEq/L (99-109); POTASSIUM 4.6 mEq/L (3.7-5.4); SODIUM 136 mEq/L (136-147)
[2018-03-01 22:00] LABS: GLUCOSE 125 mg/dL (70-99)
[2018-03-01 22:02] LABS: TOTAL BILIRUBIN 0.2 mg/dL (0.0-1.0)
[2018-03-01 22:04] LABS: ALKALINE PHOSPHATASE 70 IU/L (3-129); GFR ESTIMATE (CALCULATED) 34 mL/min/ (58.99-99999)
[2018-03-01 22:05] LABS: UREA NITROGEN (BUN) 23 mg/dL (9-23)
[2018-03-01 22:06] LABS: AST (GOT) 29 IU/L (2-34)
[2018-03-01 22:07] LABS: ALT (GPT) 38 IU/L (3-49); LIPASE 12 U/L (1.0-51.0)
[2018-03-02] LABS: APPEARANCE CLEAR ((CLEAR)); BILIRUBIN NEGATIVE; BLOOD NEGATIVE; COLOR YELLOW ((YELLOW)); GLUCOSE (STRIP) NEGATIVE; KETONES NEGATIVE; LEUKOCYTES NEGATIVE; NITRITE NEGATIVE; PROTEIN (STRIP) NEGATIVE; SPECIFIC GRAVITY 1.012 (1.000-1.030); UCUL ADDED? NO; UROBILINOGEN 0.2 MG/DL (0.2-1.0)
[2018-03-02 00:41] VITALS: BP 114/74
== END 2018-03-02 00:42 | disposition home or self-care (01) ==
LOC: EME 18:50
PROVIDERS: Emergency Medicine
DX: R11.2 Nausea with vomiting, unspecified (principal); R06.02 Shortness of breath; R05 Cough; F79 Unspecified intellectual disabilities; I13.0 Hypertensive heart and chronic kidney disease with heart failure and stage 1 through stage 4 chronic kidney disease, or unspecified chronic kidney disease; I50.9 Heart failure, unspecified; N18.3 Chronic kidney disease, stage 3 (moderate); J45.909 Unspecified asthma, uncomplicated; Z85.46 Personal history of malignant neoplasm of prostate
CPT/HCPCS: 71045; 74018; 80053; 81003; 83690; 85025; 85027